=== PATIENT | female | born 1980 | race Two or more races ===

== ENCOUNTER 2016-09-07 10:27 | Emergency (ER) | payer MEDICAID ==
[2016-09-07 10:39] VITALS: BP 102/66
[2016-09-07] MEDS ORDERED: RISP1TAB3 PO (10:49)
[2016-09-07] MEDS ORDERED: RANI150T4 PO (10:49)
== END 2016-09-07 10:59 | disposition home or self-care (01) ==
LOC: ED 10:48
DX: K21.9 Gastro-esophageal reflux disease without esophagitis (principal); F20.89 Other schizophrenia